=== PATIENT | female | born 1975 | race Two or more races ===

== ENCOUNTER 2021-06-26 08:05 | Emergency (ER) | payer OTHER ==
[~2021-06-26] VITALS: Ht 157.5 cm; Wt 67.6 kg
[2021-06-26] MEDS ORDERED: PRILOSEC OTC20 MG (08:16)
[2021-06-26] MEDS ORDERED: DICY20TA (08:17)
== END 2021-06-26 17:30 | disposition home or self-care (01) ==
LOC: ER 08:05
DX: U07.1 COVID-19 (principal); K52.89 Other specified noninfective gastroenteritis and colitis

== ENCOUNTER 2021-06-29 08:30 | Emergency (ER) | payer OTHER ==
[~2021-06-29] VITALS: Ht 157.5 cm; Wt 66.2 kg
[~2021-06-29 08:30] MED LIST: DICY20TA; PRILOSEC OTC20 MG
== END 2021-06-29 12:07 | disposition home or self-care (01) ==
LOC: ER 08:30
DX: E86.0 Dehydration (principal)